=== PATIENT | female | born 1960 | race Caucasian/White ===

== ENCOUNTER 2018-01-09 16:32 | Emergency (ER) | payer BC, OTHER ==
--- NOTE | 2018-01-09 17:12 | UC ---
Ear Complaint HPI - HPI Summary HPI Summary: Patient states that she saw her primary care provider last Monday and was diagnosed with a sinus infection which presented with sinus discomfort and bilateral ear pressure and crackling. She was treated with Augmentin twice a day she is currently taking the Augmentin. She notes that her sinuses have improved however she continues to have bilateral ear pressure and crackling, right greater than left. She denies any history of injury or ringing in the ears. She denies any fever or chills and offers no other complaints. In addition to the antibiotic she has been taking Nasacort. She's tried Mucinex. She states that she even tried oral decongestant for 2 days despite her high blood pressure and attempt to get relief however does not helped. She has no associated allergy symptoms such as sneezing or itchy watery eyes. - History of Current Complaint Hx Obtained From: Patient Onset/Duration: Gradual Onset Aggravating Factors: Nothing Alleviating Factors: Nothing Associated Signs/Symptoms: Negative: Discharge, Foreign Body Sensation, Trauma to Ear, Swelling @ <Barbara Amezcua - Last Filed: 01/09/18 16:54> <Aba Desai - Last Filed: 01/09/18 20:03> - History of Current Complaint Stated Complaint: ADRIÁN EAR COMPLAINT Time Seen by Provider: 01/09/18 16:53 - Allergies/Home Medications Allergies/Adverse Reactions: Allergies Allergy/AdvReac Type Severity Reaction Status Date / Time No Known Allergies Allergy Verified 01/09/18 17:15 Home Medications: Home Medications Aspirin 325 mg PO DAILY 01/09/18 [History Confirmed 01/09/18] Calcium Carb, Citrate/Vit D3 [Calcium + D3 ER Tablet] 1 each PO DAILY 01/09/18 [ History Confirmed 01/09/18] Cholecalciferol (Vitamin D3) [Vitamin D3] 1,000 unit PO DAILY 01/09/18 [History Confirmed 01/09/18] Glucosam/Chondr/Collagn/Hyalur [Glucosamine & Chondroitin Cap] 1 each PO DAILY 01/09/18 [History Confirmed 01/09/18] Letrozole 2.5 mg PO DAILY 01/09/18 [History Confirmed 01/09/18] Lisinopril/HCTZ 20/12.5(NF) [Zestoretic 20/12.5(NF)] 1 tab PO DAILY 01/09/18 [ History Confirmed 01/09/18] [place]-3/Dha/Epa/Fish Oil [Fish Oil 500 mg Softgel] 1 each PO DAILY 01/09/18 [ History Confirmed 01/09/18] PMH/Surg Hx/FS Hx/Imm Hx - Additional Past Medical History Additional PMH: Carotid fibromuscular dysplasia causing unequal pupils, breast CA Cardiovascular History: Hypertension - Family History Known Family History: Positive: Cardiac Disease, Hypertension, Diabetes, Other - [place] - Social History Occupation: Retired Lives: With Family <Barbara Amezcua - Last Filed: 01/09/18 16:54> Review of Systems Constitutional: Negative Skin: Negative Eyes: Negative ENT: Other - ears plugged and crackles Respiratory: Negative Cardiovascular: Negative Gastrointestinal: Negative Genitourinary: Negative Motor: Negative Neurovascular: Negative Musculoskeletal: Negative Neurological: Negative Psychological: Negative Is Patient Immunocompromised?: No All Other Systems Reviewed And Are Negative: Yes <Barbara Amezcua - Last Filed: 01/09/18 16:54> Physical Exam Triage Information Reviewed: Yes Appearance: Well-Appearing Vital Signs Reviewed: Yes Eyes: Positive: Conjunctiva Clear ENT: Positive: Pharynx normal, TMs normal - L, Other - R retracted. Negative: Nasal congestion, Nasal drainage, Sinus tenderness Neck: Positive: Supple, Nontender, No Lymphadenopathy Respiratory: Positive: Lungs clear, Normal breath sounds Cardiovascular: Positive: RRR, No Murmur Abdomen Description: Positive: Nontender, No Organomegaly, Soft Bowel Sounds: Positive: Present Musculoskeletal: Positive: ROM Intact Neurological: Positive: Alert Psychological: Positive: Age Appropriate Behavior Skin Exam: Normal <Barbara Amezcua - Last Filed: 01/09/18 16:54> Vital Signs: Initial Vital Signs Temp 98.8 F 01/09/18 17:09 Pulse 70 01/09/18 17:09 Resp 14 01/09/18 17:09 BP 141/73 01/09/18 17:09 Pulse Ox 98 01/09/18 17:09 <Aba Desai - Last Filed: 01/09/18 20:03> Ear Complaint Course/Dx - Course Course Of Treatment: pt on augmentin. no sign of OM or OE on exam. pt has failed antibiotic, po decongestant, nasal steroid and mucinex thus will tx with po steroid and f/u with her ENT, Dr Rodriguez. - Differential Dx/Diagnosis Provider Diagnoses: Eustachian tube dysfunction <Mauro Amezcuaie - Last Filed: 01/09/18 16:54> Discharge - Sign-Out/Discharge Documenting (check all that apply): Discharge/Admit/Transfer - Billing Disposition and Condition Condition: STABLE Disposition: Home <Barbara Amezcua - Last Filed: 01/09/18 16:54> - Billing Disposition and Condition Condition: STABLE Disposition: Home <Aba Desai - Last Filed: 01/09/18 20:03> - Discharge Plan Condition: Stable Disposition: HOME Prescriptions: methylPREDNISolone [Medrol Dosepak 4 MG*] 0 mg PO .SEE TAHIRA INSTRUCTION #1 tab Patient Education Materials: Earache (ED) Referrals: Vanesa Casper MD [Primary Care Provider] - If Needed Daniel Rodriguez MD [Medical Doctor] - 7 Days Additional Instructions: Per institutional requirements, I have reviewed the chart, however, I was not consulted specifically or made aware of this patient by the above midlevel provider. I did not personally evaluate, interact with , or disposition this patient.
[2018-01-09 17:15] VITALS: BP 141/73
== END 2018-01-09 17:30 | disposition home or self-care (01) ==
LOC: UCCORT 16:32
DX: H69.80 Other specified disorders of Eustachian tube, unspecified ear (principal); I10 Essential (primary) hypertension; Z85.3 Personal history of malignant neoplasm of breast
CPT/HCPCS: 99212; G0463

== ENCOUNTER 2018-12-10 07:30 | Emergency (ER) | payer BC ==
[2018-12-10 07:52] VITALS: BP 156/76
--- NOTE | 2018-12-10 08:00 | UC ---
Throat Pain/Nasal Jamie HPI - HPI Summary HPI Summary: 58 yo female with llergy symptoms x weeks now with one week of increased sinus pressure and pain post nasal drip upper dental pain and sensitivity no fever no CP or SOB similar symptoms 4 times a year - History of Current Complaint Chief Complaint: UCRespiratory Stated Complaint: SINUS COMPLAINT Time Seen by Provider: 12/10/18 07:52 Hx Obtained From: Patient Onset/Duration: Sudden Onset, Lasting Weeks, Worse Since - x 1 week Severity: Severe Pain Intensity: 3 Pain Scale Used: 0-10 Numeric Cough: Productive Associated Signs & Symptoms: Positive: Sinus Discomfort, Nasal Discharge Related History: Seasonal Allergies - Epiglottits Risk Factors Epiglottis Risk Factors: Negative - Allergies/Home Medications Allergies/Adverse Reactions: Allergies Allergy/AdvReac Type Severity Reaction Status Date / Time No Known Allergies Allergy Verified 01/09/18 17:15 Home Medications: Home Medications Amlodipine Besylate/Benazepril [Amlodipine Besylate/Benaz 5-40 mg-] 1 cap PO DAILY 12/10/18 [History Confirmed 12/10/18] Cetirizine* [ZyrTEC 10 MG TAB*] 10 mg PO DAILY 12/10/18 [History Confirmed 12/10] Fluticasone NASAL SPRAY 50MCG* [Flonase NASAL SPRAY 50MCG*] 2 spray BOTH NARES DAILY 12/10/18 [History Confirmed 12/10/18] Montelukast Sodium TAB* [Singulair TAB*] 10 mg PO BEDTIME 12/10/18 [History Confirmed 12/10/18] guaiFENesin [Mucinex] 600 mg PO BID 12/10/18 [History Confirmed 12/10/18] hydroCHLOROthiazide [Hydrochlorothiazide] 12.5 mg PO DAILY 12/10/18 [History Confirmed 12/10/18] PMH/Surg Hx/FS Hx/Imm Hx Previously Healthy: Yes Cardiovascular History: Hypertension Cancer History: Breast Cancer - Surgical History Surgical History: Yes Surgery Procedure, Year, and Place: LUMPECTOMY 2010. LAMI 2006. SMALL BOWEL RESECTION 2010. COLOSTOMY CLOSURE 2011. HERNIA REAPIR 2015 - Family History Known Family History: Positive: Cardiac Disease, Hypertension, Diabetes, Other - [place] - Social History Alcohol Use: Occasionally Substance Use Type: None Smoking Status (MU): Never Smoked Tobacco Review of Systems All Other Systems Reviewed And Are Negative: Yes Constitutional: Positive: Fatigue Skin: Positive: Negative Eyes: Positive: Negative ENT: Positive: Dental Pain, Ear Ache - popping, Nasal Discharge, Sinus Congestion, Sinus Pain/Tenderness Respiratory: Positive: Cough Cardiovascular: Positive: Negative Gastrointestinal: Positive: Negative Genitourinary: Positive: Negative Motor: Positive: Negative Neurovascular: Positive: Negative Musculoskeletal: Positive: Negative Neurological: Positive: Negative Psychological: Positive: Negative Physical Exam Triage Information Reviewed: Yes Appearance: Well-Appearing, No Pain Distress, Well-Nourished Vital Signs: Initial Vital Signs Temp 99.3 F 12/10/18 07:47 Pulse 85 12/10/18 07:47 Resp 18 12/10/18 07:47 BP 156/76 12/10/18 07:47 Pulse Ox 97 12/10/18 07:47 Vital Signs Reviewed: Yes Eyes: Positive: Conjunctiva Clear ENT: Positive: Hearing grossly normal, Nasal congestion, Nasal drainage, TMs normal, Sinus tenderness, Uvula midline. Negative: Tonsillar swelling, Tonsillar exudate, Trismus, Muffled voice Neck: Positive: Supple, Nontender, No Lymphadenopathy Respiratory: Positive: Lungs clear, Normal breath sounds, No respiratory distress, No accessory muscle use Cardiovascular: Positive: RRR, No Murmur Musculoskeletal: Positive: ROM Intact, No Edema Neurological: Positive: Alert Psychological Exam: Normal Skin Exam: Normal Throat Pain/Nasal Course/Dx - Differential Dx/Diagnosis Provider Diagnosis: Acute sinusitis Discharge - Sign-Out/Discharge Documenting (check all that apply): Patient Departure All imaging exams completed and their final reports reviewed: No Studies - Discharge Plan Condition: Stable Disposition: HOME Prescriptions: Amoxicillin/Clavulanate TAB* [Augmentin TAB 875*] 875 mg PO BID #14 tab Patient Education Materials: Sinusitis (ED) Referrals: Vanesa Casper MD [Primary Care Provider] - If Needed Additional Instructions: warm facial compresses saline nasal spray - 2 sprays each nostril twice daily use your flonase about 5 minutes later...2 sprays each nostril twice daily ( may use at this frequency for a couple of weeks if symptoms severe) - Billing Disposition and Condition Condition: STABLE Disposition: Home
== END 2018-12-10 08:17 | disposition home or self-care (01) ==
LOC: UCCORT 07:30
DX: J01.90 Acute sinusitis, unspecified (principal); I10 Essential (primary) hypertension; Z79.899 Other long term (current) drug therapy
CPT/HCPCS: 99212; G0463